=== PATIENT | male | born 1990 | race Two or more races ===

== ENCOUNTER 2022-12-26 02:07 | Emergency (ER) | payer BC, OTHER ==
[~2022-12-26] VITALS: Ht 195.6 cm; Wt 81.6 kg
[2022-12-26] MEDS ORDERED: DEXAMETHASONE SOD PHOSPHATE 10 MG/ML VIAL ONE (02:34)
[2022-12-26] MEDS ORDERED: CARISOPRODOL 350 MG TABLET ONE (02:35)
[2022-12-26] MEDS ORDERED: MORPHINE SULFATE INJ 4 MG/ML DISP.SYRIN ONE (02:35)
[2022-12-26] MEDS: CARISOPRODOL 350 MG TABLET PO ONE (02:48)
[2022-12-26] MEDS: MORPHINE SULFATE INJ 2 MG/ML DISP.SYRIN IM ONE (02:48)
[2022-12-26] MEDS: DEXAMETHASONE SOD PHOSPHATE 4 MG/ML VIAL IM ONE (02:48)
[2022-12-26] MEDS ORDERED: IBUP-1957 PO (04:35)
[2022-12-26] MEDS ORDERED: HYDR-3972 PO (04:35)
[2022-12-26] MEDS ORDERED: PRED50TA PO (04:35)
[2022-12-26] MEDS ORDERED: CARI350T PO (04:35)
[2022-12-26 05:05] VITALS: BP 128/70
== END 2022-12-26 05:00 | disposition home or self-care (01) ==
LOC: ER 02:09
DX: M54.42 Lumbago with sciatica, left side (principal); M54.41 Lumbago with sciatica, right side; F17.200 Nicotine dependence, unspecified, uncomplicated; Z79.899 Other long term (current) drug therapy
CPT/HCPCS: 99285; 72131; 96372; J1100; J2270